=== PATIENT | male | born 1955 | race Caucasian/White ===

== ENCOUNTER 2016-12-06 07:35 | Emergency (ER) | END 2016-12-06 08:48 | disposition home or self-care (01) | DX: S81.011A Laceration without foreign body, right knee, initial encounter (principal); W25.XXXA Contact with sharp glass, initial encounter; Y92.9 Unspecified place or not applicable; Z79.82 Long term (current) use of aspirin ==

== ENCOUNTER 2017-01-31 17:04 | Emergency (ER) | END 2017-01-31 17:56 | disposition left against medical advice (07) | DX: Z53.21 Procedure and treatment not carried out due to patient leaving prior to being seen by health care provider (principal) ==

== ENCOUNTER 2017-08-03 18:24 | Emergency (ER) | END 2017-08-03 21:54 | disposition left against medical advice (07) ==